=== PATIENT | male | born 1980 | race Caucasian/White ===

== ENCOUNTER 2024-03-11 04:01 | Day surgery (SDC) | payer OTHER ==
[~2024-03-11] VITALS: Ht 182.9 cm; Wt 118.0 kg
[2024-03-11] VITALS (235 sets, daily range): BP systolic 85–150; BP diastolic 36–97
[2024-03-11] MEDS ORDERED: MIRALAX17 GM (07:26)
[2024-03-11] MEDS ORDERED: cloNIDine HCL 0.1 MG/TAB PO PRN (07:30)
[2024-03-11] MEDS ORDERED: diazePAM 5 MG/TAB PO PRN ×2 (07:30→08:30)
[2024-03-11] MEDS ORDERED: ALBUTEROL SULFATE 2.5 MG VIAL IN PRN (07:30)
[2024-03-11] MEDS ORDERED: SCOPOLAMINE 1.5 MG DIS TD PRN (07:30)
[2024-03-11] MEDS ORDERED: FAMOTIDINE 20 MG/TAB PO PRN (07:30)
[2024-03-11] MEDS ORDERED: PANTOPRAZOLE SODIUM Sesquihydr 40 MG/TAB PO PRN (07:30)
[2024-03-11] MEDS ORDERED: CYANOCOBALAMIN 500 MCG/TAB ( B12) PO PRN (07:30)
[2024-03-11] MEDS ORDERED: LACTATED RINGER'S 1,000 ML IV PRN ×3 (07:30→19:00)
[2024-03-11] MEDS ORDERED: ASCORBIC ACID 4,000 MG in SODIUM CHLORIDE 0.9% 1,000 ML IV SCH (08:00)
[2024-03-11] MEDS ORDERED: cloNIDine HCL 0.1 MG/TAB PO ONE (08:25)
[2024-03-11 08:38] LABS: BASO% 0.2 % (0-3); EOS% 0.1 % (0-8); HEMATOCRIT 43.1 % (39.0-50.0); HEMOGLOBIN 14.6 g/dl (14.0-18.0); IMMATURE GRANULOCYTES 0.2 % (0.0-5.0); MEAN CORPUSCULAR HGB 28.8 pG CALC (26.0-32.0); MEAN CORPUSCULAR HGB CONC 33.9 g/dL CAL (32.0-36.0); NEUT# 8.95 thou/uL (1.82-7.42); NEUT% 79.5 % (42-76); RED BLOOD COUNT 5.07 mill/uL (4.70-6.10)
[2024-03-11] MEDS ORDERED: OCTREOTIDE ACETATE 100 MCG/VIAL SDV SC PRN (08:40)
[2024-03-11] MEDS ORDERED: DEXAMETHASONE SODIUM PHOSPHATE PF 10 MG/ML SDV IV PRN ×2 (08:40→19:00)
[2024-03-11] MEDS ORDERED: MIDAZOLAM HCL 2 MG/2 ML VIAL IV PRN (08:40)
[2024-03-11] MEDS ORDERED: PROPOFOL 10 MG/ML 100ML VIAL IV PRN (08:40)
[2024-03-11] MEDS ORDERED: LIDOCAINE HCL 1% (10MG/ML) 100 MG/10 ML MDV VT PRN ×2 (08:40)
[2024-03-11] MEDS ORDERED: LIDOCAINE HCL 1% (10MG/ML) 100 MG/10 ML MDV IV PRN (08:40)
[2024-03-11] MEDS ORDERED: cloNIDine HYDROCHLORIDE 100 MCG/ML 10 ML INJ IV PRN (08:40)
[2024-03-11] MEDS ORDERED: cloNIDine HCL 0.1 MG/TAB VT PRN (08:40)
[2024-03-11] MEDS ORDERED: diazePAM 5 MG/TAB VT PRN (08:40)
[2024-03-11] MEDS ORDERED: MAGNESIUM SULFATE HEPTAHYDRATE 100 ML IV PRN (08:40)
[2024-03-11] MEDS ORDERED: PROPOFOL 100 ML IV PRN (08:40)
[2024-03-11] MEDS ORDERED: ONDANSETRON HCl 4 MG/2 ML SDV IV PRN ×3 (08:40→19:00)
[2024-03-11] MEDS ORDERED: STERILE WATER FOR IRRIGATION 1,000 ML BTL IR PRN (08:40)
[2024-03-11] MEDS ORDERED: ROCURONIUM BROMIDE 10 MG/ML 5ML VIAL IV PRN (08:40)
[2024-03-11] MEDS ORDERED: DiphenhydrAMINE HCL 50 MG/ML SDV IV PRN (08:40)
[2024-03-11] MEDS ORDERED: SUCCINYLCHOLINE CHLORIDE 20 MG/ML 10ML VIAL IV PRN (08:40)
[2024-03-11] MEDS ORDERED: NALTREXONE HCL 50 MG/TAB VT PRN (08:40)
[2024-03-11] MEDS ORDERED: THIAMINE HCL 100 MG/ML 2ML VIAL IV PRN (08:40)
[2024-03-11 09:17] LABS: ALBUMIN 4.4 g/dL (3.2-5.0); BILIRUBIN, TOTAL 0.6 mg/dL (0.2-1.3); CREATININE 0.6 mg/dL (0.7-1.3)
[2024-03-11] MEDS ORDERED: POTASSIUM CHLORIDE 10 MEQ/50 ML BAG IV PRN (09:25)
[2024-03-11] MEDS ORDERED: LABETALOL HCL 100 MG/20 ML VIAL IV ONE (11:34)
[2024-03-11] MEDS ORDERED: LABETALOL HCL 20 MG/ 4 ML CARTRG IV ONE (12:45)
[2024-03-11] MEDS ORDERED: KLONOPIN2 MG PO (15:39)
[2024-03-11] MEDS ORDERED: NALTREXONE50 MG PO (15:39)
[2024-03-11] MEDS ORDERED: CLONIDINE0.1 MG PO (15:39)
[2024-03-11] MEDS ORDERED: clonazePAM 1 MG/TAB PO PRN (16:25)
[2024-03-11] MEDS ORDERED: ACETAMINOPHEN 1,000 MG/100 ML VIAL IV SCH (17:00)
[2024-03-11] MEDS ORDERED: LIDOCAINE HCL 1% (10MG/ML) 100 MG/10 ML MDV IV SCH (17:00)
[2024-03-11] MEDS ORDERED: KETOROLAC TROMETHAMINE 30 MG/ML SDV IV SCH (17:00)
[2024-03-11] MEDS ORDERED: OCTREOTIDE ACETATE 100 MCG/VIAL SDV ONE (17:56)
[2024-03-11] MEDS ORDERED: ACETAMINOPHEN 1,000 MG/100 ML VIAL IV PRN (19:00)
[2024-03-11] MEDS ORDERED: KETOROLAC TROMETHAMINE 30 MG/ML SDV IV PRN (19:00)
[2024-03-11] MEDS ORDERED: HALOPERIDOL LACTATE 5 MG/ML SDV IV PRN (19:00)
[2024-03-11] MEDS ORDERED: PROMETHAZINE HCL 25 MG in SODIUM CHLORIDE 0.9% 50 ML IV PRN (19:00)
[2024-03-11] MEDS ORDERED: LORazepam 2 MG/ML IV PRN ×2 (19:00)
[2024-03-11] MEDS ORDERED: ACETAMINOPHEN 500 MG TAB PO PRN (19:00)
[2024-03-11] MEDS ORDERED: PROMETHAZINE HCL 12.5 MG in SODIUM CHLORIDE 0.9% 50 ML IV PRN (19:00)
[2024-03-11] MEDS ORDERED: NICOTINE TRANSDERMAL 21 MG/PATCH TD SCH (20:00)
[2024-03-11] MEDS ORDERED: PATIENT' OWN MED CONTROLLED 1 EA DOSE IV PRN (21:00)
[2024-03-11] MEDS ORDERED: cloNIDine HCL 0.1 MG/TAB PO SCH (23:00)
[2024-03-12] MEDS ORDERED: HALOPERIDOL LACTATE 5 MG/ML SDV IV PRN ×2 (03:10→17:15)
[2024-03-12] MEDS ORDERED: KETOROLAC TROMETHAMINE 30 MG/ML SDV IV SCH ×2 (03:15→12:30)
[2024-03-12] MEDS ORDERED: GABAPENTIN 300 MG/CAP PO SCH (03:15)
[2024-03-12 03:19] VITALS: BP 134/71
[2024-03-12] MEDS ORDERED: cloNIDine HCL 0.1 MG/TAB PO PRN (04:00)
[2024-03-12] MEDS ORDERED: clonazePAM 1 MG/TAB PO PRN ×3 (04:00→17:15)
[2024-03-12 05:01] LABS: BASO% 0.1 % (0-3); HEMATOCRIT 37.2 % (39.0-50.0); HEMOGLOBIN 12.7 g/dl (14.0-18.0); IMMATURE GRANULOCYTES 0.2 % (0.0-5.0); LYMPH% 11.3 % (15-41); MEAN CELL VOLUME 87.5 fL CALC (80.0-100.0); MEAN CORPUSCULAR HGB 29.9 pG CALC (26.0-32.0); MEAN CORPUSCULAR HGB CONC 34.1 g/dL CAL (32.0-36.0); MONO% 4.2 % (2-13); NEUT# 10.25 thou/uL (1.82-7.42); NEUT% 84.2 % (42-76); RED BLOOD COUNT 4.25 mill/uL (4.70-6.10); RED CELL DISTRI WIDTH 13.3 % (11.5-15.5)
[2024-03-12 05:19] LABS: ALBUMIN 4.1 g/dL (3.2-5.0); BILIRUBIN, TOTAL 0.6 mg/dL (0.2-1.3); CREATININE 0.8 mg/dL (0.7-1.3); TOTAL PROTEIN 7.2 g/dL (6.3-8.2)
[2024-03-12 07:41] VITALS: BP 132/59
[2024-03-12] MEDS ORDERED: cloNIDine HCL 0.1 MG/TAB PO SCH ×3 (08:00→21:00)
[2024-03-12] MEDS ORDERED: NALTREXONE HCL 50 MG/TAB PO SCH ×2 (08:00→12:00)
[2024-03-12] MEDS ORDERED: PANTOPRAZOLE SODIUM Sesquihydr 40 MG/TAB PO SCH (08:00)
[2024-03-12] MEDS ORDERED: ACETAMINOPHEN 325 MG/TAB PO SCH (08:00)
[2024-03-12] MEDS ORDERED: Cholecalciferol 2,000 UNIT/TAB PO PRN (09:00)
[2024-03-12] MEDS ORDERED: LIDOCAINE 4 % PATCH TD SCH (09:00)
[2024-03-12] MEDS ORDERED: MAGNESIUM OXIDE 400 MG/TAB PO PRN (09:00)
[2024-03-12] MEDS ORDERED: ACETAMINOPHEN 500 MG TAB PO PRN (09:00)
[2024-03-12 11:23] VITALS: BP 133/80
[2024-03-12] MEDS ORDERED: HALOPERIDOL LACTATE 5 MG/ML SDV IV SCH (12:30)
[2024-03-12] MEDS ORDERED: KETOROLAC TROMETHAMINE 30 MG/ML SDV IV PRN (17:15)
[2024-03-12] MEDS ORDERED: ACETAMINOPHEN 325 MG/TAB PO PRN (17:15)
[2024-03-12 18:44] VITALS: BP 153/73
[2024-03-12 19:47] VITALS: BP 153/73
[2024-03-13 03:32] VITALS: BP 133/71
[2024-03-13 04:58] VITALS: BP 133/71
[2024-03-13 05:05] LABS: HEMATOCRIT 40.5 % (39.0-50.0); HEMOGLOBIN 13.8 g/dl (14.0-18.0); MEAN CELL VOLUME 85.8 fL CALC (80.0-100.0); MEAN CORPUSCULAR HGB 29.2 pG CALC (26.0-32.0); MEAN CORPUSCULAR HGB CONC 34.1 g/dL CAL (32.0-36.0); RED BLOOD COUNT 4.72 mill/uL (4.70-6.10); RED CELL DISTRI WIDTH 13.1 % (11.5-15.5)
[2024-03-13 05:37] LABS: ALBUMIN 3.9 g/dL (3.2-5.0); BILIRUBIN, TOTAL 0.7 mg/dL (0.2-1.3); CREATININE 0.7 mg/dL (0.7-1.3); MAGNESIUM 2.1 mg/dL (1.6-2.3); POTASSIUM 3.5 mmol/l (3.5-5.1); TOTAL PROTEIN 7.1 g/dL (6.3-8.2)
[2024-03-13] MEDS ORDERED: NALTREXONE HCL 50 MG/TAB PO SCH (08:00)
[2024-03-13 08:04] VITALS: BP 152/78
[2024-03-13] MEDS ORDERED: PANTOPRAZOLE SODIUM Sesquihydr 40 MG/TAB PO SCH (09:00)
== END 2024-03-13 16:04 | disposition home or self-care (01) | DRG 897 ==
LOC: ANR 04:01 → MS2 04:01 → ANR 07:00 → MS2 18:26 → ANR 03-13 16:04
PROVIDERS: ATTEND Anesthesiology Critical Care Medicine
DX: F11.20 Opioid dependence, uncomplicated (principal)
CPT/HCPCS: J0131; J1100; J2060; J2354; J3475; J3490